=== PATIENT | female | born 1985 | race Caucasian/White ===

== ENCOUNTER 2023-07-11 09:17 | Outpatient (CLI) | payer OTHER, SELFPAY ==
--- NOTE | ~2023-07-11 | MR_ITS ---
MR breast BI wo/w con 07/11/2023 12:27 SENIOR TELECOMMUNICATIONS TECHNICIAN INDICATION: Inconclusive mammogram and ultrasound. TECHNIQUE: MRI of the breasts perform using standard protocol pre-and post IV contrast with the follo wing sequences: Axial T2 STIR, axial T1, axial vibrant T1 with fat suppression precontrast and multip hasic postcontrast. COMPARISON: No prior studies for comparison. FINDINGS: There are no abnormalities on the precontrast sequences. There is mild background parenchym al enhancement. In the lower outer quadrant posteriorly there is an area of nonmass-like enhancement measuring 2.3 x 2.9 x 0.6 cm with rapid plateau enhancement. No evidence of signal abnormalities in the axillary or internal mammary node distributions. LEFT BREAST: No signal abnormalities on precontrast sequences. There is mild background parenchymal enhancement. In the upper outer quadrant of the left breast posteriorly there is nonmass-like enhance ment measuring 1.5 x 1.4 x 0.8 cm with rapid plateau kinetics. There is an adjacent area of nonmass-l ortiz enhancement in the upper outer quadrant posteriorly measuring 10 x 9 x 5 mm. This area demonstrat es rapid persistent enhancement. 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 Recommendation: Recommend correlation with diagnostic bilateral mammogram and ultrasound. BI-RADS CATEGORY 0 - INCOMPLETE STUDY, NEED ADDITIONAL IMAGING EVALUATION. Reviewed, dictated and finalized at location A. OR TELECOMMUNICATIONS TECHNICIAN IMPRESSION: 1: Bilateral areas of nonmass-like enhancement in the lower outer quadrant of t he right breast posteriorly in the upper outer quadrant of the left breast post eriorly. Recommendation: Recommend correlation with diagnostic bilateral mammogram and u ltrasound. BI-RADS CATEGORY 0 - INCOMPLETE STUDY, NEED ADDITIONAL IMAGING EVALUATION.
== END 2023-07-11 09:18 | disposition home or self-care (01) ==
PROVIDERS: PCP Family Medicine; Visit Provider Obstetrics & Gynecology
DX: R92.8 Other abnormal and inconclusive findings on diagnostic imaging of breast (principal); R92.2 Inconclusive mammogram
CPT/HCPCS: 77049; A9577; C8908